=== PATIENT | female | born 1970 | race Caucasian/White ===

== ENCOUNTER → 2017-06-29 | Outpatient (REF) | payer BC | LOC: M SFHCWAGY 08:29 | DX: Z12.4 Encounter for screening for malignant neoplasm of cervix (principal) | CPT/HCPCS: G0123 ==

== ENCOUNTER → 2017-06-29 | Outpatient (CLI) | payer BC | LOC: M WHC 08:11 | DX: Z12.31 Encounter for screening mammogram for malignant neoplasm of breast (principal) ==

== ENCOUNTER → 2017-10-24 | Outpatient (REF) | payer BC ==
[2017-10-24 12:10] LABS: ALBUMIN 3.9 GM/DL (3.2-5.2); ALBUMIN/GLOBULIN RATIO 1.26 (1.00-1.93); ALKALINE PHOSPHATASE 83 U/L (45-117); ALT/SGPT 21 U/L (12-78); ANION GAP 7 MEQ/L (8-16); AST/SGOT 19 U/L (7-37); BILIRUBIN,TOTAL 0.3 MG/DL (0.2-1.0); BLOOD UREA NITROGEN 18 MG/DL (7-18); CALCIUM LEVEL 8.5 MG/DL (8.5-10.1); CARBON DIOXIDE LEVEL 27 MEQ/L (21-32); CHLORIDE LEVEL 106 MEQ/L (98-107); CHOLESTEROL LEVEL 178 MG/DL (<200); CHOLESTEROL RISK RATIO 3.955 (<5); CREATININE FOR GFR 0.83 MG/DL (0.55-1.30); GLOMERULAR FILTRATION RATE > 60.0 (>58); GLUCOSE, FASTING 90 MG/DL (70-100); HDL CHOLESTEROL 45 MG/DL (>40); LDL CHOLESTEROL 114.8 MG/DL (<100); NON-HDL-C 133 MG/DL; SODIUM LEVEL 140 MEQ/L (136-145); TRIGLYCERIDES LEVEL 91 MG/DL (<150)
[2017-10-24 12:11] LABS: POTASSIUM SERUM 5.2 MEQ/L (3.5-5.1)
== END ==
LOC: M SFHCCLAY 07:40
DX: Z00.00 Encounter for general adult medical examination without abnormal findings (principal)
CPT/HCPCS: 84443

== ENCOUNTER → 2018-06-30 | Outpatient (REF) | payer BC ==
[2018-07-04 16:21] LABS: HPV HYBRID CAPTURE II Negative (Negative)
== END ==
LOC: M SFHCWAGY 08:39
PROVIDERS: ATTEND Nurse Practitioner Women's Health
DX: Z12.4 Encounter for screening for malignant neoplasm of cervix (principal); Z11.51 Encounter for screening for human papillomavirus (HPV)

== ENCOUNTER → 2018-06-30 | Outpatient (CLI) | payer BC ==
--- NOTE | 2018-06-30 10:53 | REPMRS ---
Patient History The patient states she had a clinical breast exam in 06/2018. No known family history of cancer. No Hormone Replacement Therapy Digital Woman Screen Mammo: June 30, 2018 - Exam #: [id number] Bilateral CC and MLO view(s) were taken. Technologist: Divina Hoang, Technologist Prior study comparison: June 29, 2017, digital woman screen mammo performed at [facility] to [facility]. April 29, 2016, digital woman screen mammo performed at [facility] to [facility]. March 25, 2015, digital woman screen mammo performed at [facility] to [facility]. FINDINGS: The breast tissue is heterogeneously dense. This may lower the sensitivity of mammography. There is a moderate amount of heterogeneously dense fibroglandular tissue which is fairly symmetric. There is no interval development of dominant mass, architectural distortion, or clustered microcalcification typical of malignancy. There has been no change in the appearance of the mammogram from the prior studies. 3-D tomosynthesis shows no additional findings. Assessment: BI-RADS/ACR category 1 mammogram. Negative Mammogram. Recommendation Routine screening mammogram of both breasts in 1 year (for women over age 40). This patient's Lifetime Breast Cancer RIsk is estimated at 12.7 %. This mammogram was interpreted with the aid of an FDA-approved computer-aided dectection system. Electronically Signed By: Mode Raza MD 06/30/18 [id number]
== END ==
LOC: M WHC 08:23
PROVIDERS: ATTEND Nurse Practitioner Women's Health
DX: Z12.31 Encounter for screening mammogram for malignant neoplasm of breast (principal)

== ENCOUNTER → 2019-07-03 | Outpatient (REF) | payer OTHER | LOC: M SFHCWAGY 13:22 | PROVIDERS: ATTEND Nurse Practitioner Women's Health | DX: Z12.4 Encounter for screening for malignant neoplasm of cervix (principal) ==

== ENCOUNTER → 2019-07-03 | Outpatient (CLI) | payer BC, OTHER ==
--- NOTE | 2019-07-03 10:27 | REPMRS ---
Patient History The patient states she had a clinical breast exam in July 2019. No known family history of cancer. No Hormone Replacement Therapy Digital Woman Screen Mammo: July 03, 2019 - Exam #: [id number] Bilateral CC and MLO view(s) were taken. Technologist: Ruchi Townsend, Technologist Prior study comparison: June 30, 2018, bilateral digital woman screen mammo performed at [facility]. June 29, 2017, digital woman screen mammo performed at [facility]. April 29, 2016, digital woman screen mammo performed at [facility]. FINDINGS: The breast tissue is heterogeneously dense. This may lower the sensitivity of mammography. There is a moderate amount of heterogeneously dense fibroglandular tissue which is fairly symmetric. There is no interval development of dominant mass, architectural distortion, or grouped microcalcification typical of malignancy. There has been no change in the appearance of the mammogram from the prior studies. 3-D tomosynthesis shows no additional findings. Assessment: BI-RADS/ACR category 1 mammogram. Negative Mammogram. Recommendation Routine screening mammogram of both breasts in 1 year (for women over age 40). This patient's Lifetime Breast Cancer RIsk is estimated at 12.5 %. This mammogram was interpreted with the aid of an FDA-approved computer-aided dectection system. Electronically Signed By: Mode Raza MD 07/03/19 1187
== END ==
LOC: M WHC 08:32
PROVIDERS: ATTEND Nurse Practitioner Women's Health
DX: Z12.31 Encounter for screening mammogram for malignant neoplasm of breast (principal)

== ENCOUNTER → 2019-09-03 | Outpatient (CLI) | payer OTHER ==
[~2019-09-03] MED LIST: COLA100C5 PO; IBUP-1022 PO; OXYC1TAB23 PO
== END ==
LOC: M LABSMTC 10:24
PROVIDERS: ATTEND Anesthesiology
DX: Z01.812 Encounter for preprocedural laboratory examination (principal); Z11.59 Encounter for screening for other viral diseases; Z20.828 Contact with and (suspected) exposure to other viral communicable diseases

== ENCOUNTER 2019-09-05 06:05 | Day surgery (SDC) | payer OTHER ==
[~2019-09-05] VITALS: Ht 162.6 cm; Wt 85.5 kg
[2019-09-05 06:42] LABS: HEMATOCRIT 37.3 % (36.0-47.0); HEMOGLOBIN 12.7 g/dl (12.0-15.5); MEAN CORPUSCULAR HEMOGLOBIN 32.3 pg (27.0-33.0); MEAN CORPUSCULAR VOLUME 94.9 fl (80.0-96.0); PLATELET COUNT, AUTOMATED 317 10^3/uL (150-450); RED BLOOD COUNT 3.93 10^6/uL (4.00-5.40)
[2019-09-05] MEDS ORDERED: MIDAZOLAM INJ 2MG/2ML VIAL (J2250 PER 1MG) As Ordered ONE (06:47)
[2019-09-05] MEDS ORDERED: LIDOCAINE 2% 100MG/5ML SDV (FOR ANES.) As Ordered ONE (06:48)
[2019-09-05] MEDS ORDERED: dexameTHASONE 4 MG/ML 1ML VIAL (J1100 PER 1MG) As Ordered ONE (06:48)
[2019-09-05] MEDS ORDERED: propofoL 200 MG/20 ML VIAL As Ordered ONE (06:48)
[2019-09-05] MEDS ORDERED: SUGAMMADEX SODIUM 500 MG/5 ML VIAL (BRIDION) As Ordered ONE (06:48)
[2019-09-05] MEDS ORDERED: fentaNYL 250 MCG/5 ML INJECTION (J3010) As Ordered ONE (06:48)
[2019-09-05] MEDS ORDERED: ROCURONIUM BROMIDE 50 MG/5 ML VIAL As Ordered ONE ×2 (06:48→08:56)
[2019-09-05] MEDS ORDERED: PHENYLephrine HCL 500 MCG/5 ML (100MCG/ML) SYRINGE (J2370) As Ordered ONE (06:48)
[2019-09-05] MEDS ORDERED: ONDANSETRON 4MG/2ML VIAL As Ordered ONE (06:48)
[2019-09-05] MEDS ORDERED: ePHEDrine SULFATE 25 MG/5 ML(5MG/ML) SYRINGE As Ordered ONE (06:48)
[2019-09-05] MEDS ORDERED: BUPIVACAINE HCL 0.25% 30ML VIAL As Ordered ONE (06:51)
[2019-09-05] MEDS ORDERED: LR 1,000 ML IV ONE (07:00)
[2019-09-05] MEDS ORDERED: ceFAZolin SOD 2 GM in IV 1 EA IV ONE (07:00)
[2019-09-05] MEDS ORDERED: fentaNYL 100 MCG/2 ML INJECTION (J3010) As Ordered ONE (10:56)
[2019-09-05] MEDS: fentaNYL 100 MCG/2 ML INJECTION (J3010) IV PRN ×4 (11:00→11:15)
[2019-09-05] MEDS ORDERED: LR 1,000 ML IV SCH ×2 (11:00→11:30)
[2019-09-05] MEDS ORDERED: oxyCODONE 5MG TAB PO PRN (11:00)
[2019-09-05] MEDS ORDERED: KETOROLAC 30 MG/ML 1ML VIAL As Ordered ONE (11:15)
[2019-09-05] MEDS: KETOROLAC 30 MG/ML 1ML VIAL IV PRN ×2 (11:17→19:55)
[2019-09-05] MEDS ORDERED: OXYC1TAB23 PO (11:23)
[2019-09-05] MEDS ORDERED: IBUP-1022 PO (11:24)
[2019-09-05] MEDS ORDERED: ONDANSETRON 4MG/2ML VIAL IV PRN (11:30)
[2019-09-05] MEDS ORDERED: MORPHINE 10 MG/ML 1ML VIAL (J2270) As Ordered ONE (11:42)
[2019-09-05] MEDS: MORPHINE 2 MG/ML 1ML VIAL (J2270) IV PRN ×2 (11:45→11:50)
[2019-09-05] MEDS ORDERED: MORPHINE 4 MG/ML 1ML VIAL/SYRINGE (J2270) IV PRN (12:30)
[2019-09-05] MEDS ORDERED: PERCOCET 5MG/325MG TAB PO PRN ×2 (12:30)
[2019-09-05 12:40] VITALS: BP 144/79
[2019-09-05 18:00] VITALS: BP 147/82
[2019-09-05] MEDS: DOCUSATE SODIUM 100 MG CAP PO SCH (19:55)
[2019-09-05 22:00] VITALS: BP 143/91
[2019-09-06 02:00] VITALS: BP 136/69
[2019-09-06] MEDS: KETOROLAC 30 MG/ML 1ML VIAL IV PRN ×2 (02:08→08:26)
[2019-09-06 05:52] LABS: HEMATOCRIT 27.6 % (36.0-47.0); MEAN CORPUSCULAR HEMOGLOBIN 32.6 pg (27.0-33.0); MEAN CORPUSCULAR HGB CONC 34.1 g/dl (32.0-36.5); MEAN CORPUSCULAR VOLUME 95.8 fl (80.0-96.0); PLATELET COUNT, AUTOMATED 280 10^3/uL (150-450); RED BLOOD COUNT 2.88 10^6/uL (4.00-5.40); WHITE BLOOD COUNT 8.8 10^3/uL (4.0-10.0)
[2019-09-06 06:00] VITALS: BP 153/86
[2019-09-06 06:02] LABS: HEMOGLOBIN 9.4 g/dl (12.0-15.5)
[2019-09-06] MEDS: DOCUSATE SODIUM 100 MG CAP PO SCH (08:26)
[2019-09-06] MEDS ORDERED: COLA100C5 PO (08:48)
--- NOTE | 2019-09-07 20:43 | RO ---
DATE OF PROCEDURE: 09/05/2019 PREPROCEDURE DIAGNOSIS: Large symptomatic fibroid uterus. POSTPROCEDURE DIAGNOSIS: Large symptomatic fibroid uterus. PROCEDURE: Robotic-assisted laparoscopic hysterectomy, bilateral salpingectomy, cystoscopy. SURGEON: Lev Conroy MD SUPERVISOR CLAIMS: Juana Arredondo NP ANESTHESIA: General endotracheal. ESTIMATED BLOOD LOSS: 500 mL. URINE OUTPUT: 150 mL. FINDINGS: Large irregular fibroid uterus weighing 1000 grams. Normal fallopian tubes and ovaries. Normal upper abdomen. DESCRIPTION OF PROCEDURE: The patient was taken to the operating room where general endotracheal anesthesia was induced. She was prepped and draped in a sterile fashion in the dorsal lithotomy position. A Clarke catheter was placed. A [employer] uterine manipulator was placed. A periumbilical incision was made with a scalpel. A Veress needle was placed through this incision while tenting up on the skin of the abdomen. Intraabdominal location of the Veress needle was assessed with the use of a saline-filled syringe. Pneumoperitoneum was created. Veress needle was removed. An 8 mm trocar using [employer] was inserted through this incision. Three 8 mm suprapubic ports were placed under direct visualization. The patient was placed in Trendelenburg position, and the Da Ke[employer] surgical robot was docked to the ports. Using the fenestrated bipolar and the vessel sealer, the broad ligament attachments to the fallopian tube were coagulated and incised, the round ligament and uretero-ovarian ligaments were coagulated and incised. The anterior and posterior leaves of the broad ligament were , bladder flap was created. The uterine vessels were coagulated and incised. Using the monopolar Endo Eladio, a colpotomy was created at the upper vagina at the level of the VCare cup. This was extended circumferentially around the vagina. The specimen was too large to be removed through the vagina. It was placed in an Gustabo bag and brought through to the vagina. It was then morcellated into numerous pieces at the vagina. It was completely contained within the bag. There was no spill of fibroid material into the peritoneal cavity. The robot was then re-docked. The vaginal cuff was closed with one V-Loc suture in a running fashion. The pelvis was irrigated with good hemostasis. All instruments were removed. Cystoscopy was performed using a 70-degree cystoscope. Bilateral ureteral jets were identified. There was no evidence of injury to the bladder. All instruments were removed. The skin was closed with #4-0 Monocryl subcuticular sutures. All instruments were removed. Sponge, instrument and needle counts were correct. Juana Arredondo NP, assisted throughout the procedure from beginning to end. She helped manipulate the uterus. She helped remove the specimen. She helped to close. She was indispensable to the procedure.
== END 2019-09-06 09:23 | disposition home or self-care (01) ==
LOC: M SDC 06:05 → M MSPAV 12:39 → M SDC 09-06 09:23
PROVIDERS: ATTEND Specialist
DX: D25.9 Leiomyoma of uterus, unspecified (principal); Z88.0 Allergy status to penicillin; Z88.8 Allergy status to other drugs, medicaments and biological substances
CPT/HCPCS: 36415; 58571; 85027; 86850; 86900; 86901; 88309; 96361; 96374; 96376; J0690; J1100; J1885; J2250; J2270; J2370; J2405; J3010

== ENCOUNTER → 2020-04-07 | Outpatient (CLI) | payer SELFPAY | LOC: M LABSMTC 13:19 | PROVIDERS: ATTEND Pediatrics | DX: Z20.828 Contact with and (suspected) exposure to other viral communicable diseases (principal) ==

== ENCOUNTER → 2020-07-08 | Outpatient (CLI) | payer OTHER ==
--- NOTE | 2020-07-08 11:06 | REPMRS ---
Patient History The patient states she had a clinical breast exam in 07/2019 No known family history of cancer. No Hormone Replacement Therapy Digital Woman Screen Mammo: July 08, 2020 - Exam #: [id number] Bilateral CC and MLO view(s) were taken. Technologist: Eva Engel, Technologist Prior study comparison: July 03, 2019, bilateral digital woman screen mammo performed at [facility]. June 30, 2018, bilateral digital woman screen mammo performed at [facility]. June 29, 2017, digital woman screen mammo performed at [facility]. FINDINGS: There are scattered fibroglandular densities. The Volpara volumetric breast density category is: B. There is a moderate amount of residual fibroglandular tissue which is fairly symmetric. There is no interval development of dominant mass, architectural distortion, or grouped microcalcification typical of malignancy. There has been no change in the appearance of the mammogram from the prior studies. 3-D tomosynthesis shows no additional findings. Assessment: BI-RADS/ACR category 1 mammogram. Negative Mammogram. Recommendation Routine screening mammogram of both breasts in 1 year (for women over age 40). This patient's [facility] Lifetime Breast Cancer Risk is estimated at 12.3 %. This mammogram was interpreted with the aid of an FDA-approved computer-aided dectection system. Electronically Signed By: Mode Raza MD 07/08/20 4231
== END ==
LOC: M WHC 09:37
PROVIDERS: ATTEND Nurse Practitioner Women's Health
DX: Z12.31 Encounter for screening mammogram for malignant neoplasm of breast (principal)

== ENCOUNTER → 2021-09-30 | Outpatient (CLI) | payer OTHER | LOC: M WHC 14:19 | PROVIDERS: ATTEND Nurse Practitioner Family | DX: Z12.31 Encounter for screening mammogram for malignant neoplasm of breast (principal) ==

== ENCOUNTER → 2024-04-02 | Outpatient (CLI) | payer OTHER | LOC: M WHC 02-20 09:28 | PROVIDERS: ATTEND Physician Assistant Medical | DX: Z12.31 Encounter for screening mammogram for malignant neoplasm of breast (principal) ==

== ENCOUNTER → 2025-04-09 | Outpatient (CLI) | payer OTHER ==
[~2025-04-09] MED LIST changes: -IBUP-1022 PO; +IBUP600T42 PO
== END ==
LOC: M WHC 09:01
PROVIDERS: ATTEND Obstetrics & Gynecology
DX: Z12.31 Encounter for screening mammogram for malignant neoplasm of breast (principal)